=== PATIENT | male | born 1945 | race African-American/Black ===

== ENCOUNTER 2024-11-03 17:52 | Emergency (ER) | payer MEDICARE ==
[~2024-11-03] VITALS: Ht 182.9 cm; Wt 90.0 kg
[2024-11-03 17:54] VITALS: O2SAT 99
[2024-11-03 18:25] VITALS: TEMP 36.9
[2024-11-03] MEDS: SODIUM CHLORIDE 0.9% 1,000 ML IV ONE (18:25)
[2024-11-03 18:26] LABS: BASOPHILS % 0.7 % (0.0-2.0); EOSINOPHILS % 3.1 % (0.0-5.0); HEMATOCRIT. 42.3 % (42.0-52.0); HEMOGLOBIN. 14.5 g/dL (14.0-18.0); LYMPHOCYTES % 31.8 % (20.0-50.0); MEAN CORPUSCULAR HEMOGLOBIN 32.3 pg (28.0-32.0); MEAN CORPUSCULAR HGB CONC 34.2 g/dL (31.0-37.0); MEAN CORPUSCULAR VOLUME 94.4 fL (80.0-94.0); MEAN PLATELET VOLUME 8.8 fl (7.4-10.4); MONOCYTES % 6.7 % (2.0-8.0); NEUTROPHILS % 57.7 % (40.0-76.0); PLATELET 182 x1000/uL (130-400); RED BLOOD CELL COUNT 4.48 mill/uL (4.7-6.1); RED CELL DISTRIBUTION WIDTH 14.4 % (11.6-14.6)
[2024-11-03 18:37] LABS: CHLORIDE 106 mEq/L (98-107); POTASSIUM 3.4 mEq/L (3.5-5.1); SODIUM 141 mEq/L (136-145)
[2024-11-03 18:38] LABS: CALCIUM 8.6 mg/dL (8.7-10.4); CARBON DIOXIDE 26 mEq/L (21-32)
[2024-11-03 18:43] LABS: CREATININE 1.3 mg/dL (0.6-1.3); GLUCOSE 151 mg/dL (70-105); UREA NITROGEN BLOOD 13 mg/dL (9-23)
[2024-11-03 18:44] LABS: TROPONIN I HIGH SENSITIVITY 8 ng/L (3.0-53)
[2024-11-03 20:01] VITALS: BP 138/81; PULSE 70; RESP 16; O2SAT 99
== END 2024-11-03 20:10 | disposition home or self-care (01) ==
LOC: ER 17:52
DX: R55 Syncope and collapse (principal); E78.00 Pure hypercholesterolemia, unspecified; I10 Essential (primary) hypertension
CPT/HCPCS: 99284; 96360; 80048; 83605; 85025; 84484; 36415; 93005; J7030